=== PATIENT | female | born 1940 | race Caucasian/White ===

== ENCOUNTER 2016-09-11 12:40 | Outpatient (CLI) | payer MEDICARE, MEDICAID ==
[2016-02-24 21:46] VITALS: O2SAT 92
== END 2016-09-11 12:41 | disposition home or self-care (01) | DRG 552 ==
LOC: CONVCARE 12:40
PROVIDERS: ATTEND Orthopaedic Surgery
DX: M48.06 Spinal stenosis, lumbar region (principal); M25.552 Pain in left hip
CPT/HCPCS: 72120; 73502